=== PATIENT | male | born 1945 | race African-American/Black ===

== ENCOUNTER 2017-10-17 21:27 | Inpatient (IN) | payer MEDICARE, MEDICAID ==
[~2017-10-17] VITALS: Ht 167.6 cm; Wt 55.3 kg
[2017-10-17 23:14] LABS: CHLORIDE 106 mEq/L (98-107)
[2017-10-17 23:16] LABS: HEMATOCRIT. 45.2 % (42.0-52.0); HEMOGLOBIN. 14.7 g/dL (14.0-18.0); MEAN CORPUSCULAR HEMOGLOBIN 30.3 pg (28.0-32.0); MEAN CORPUSCULAR VOLUME 93.2 fL (80.0-94.0); MEAN PLATELET VOLUME 9.6 fl (7.4-10.4); PLATELET 240 x1000/uL (130-400); RED BLOOD CELL COUNT 4.84 mill/uL (4.7-6.1); RED CELL DISTRIBUTION WIDTH 17.3 % (11.6-14.6)
[2017-10-17 23:27] LABS: INR 1.2; PROTHROMBIN TIME 12.8 sec (9.4-11.6)
[2017-10-17 23:30] LABS: PLATELET ESTIMATE NORMAL
[2017-10-17] MEDS ORDERED: SODIUM CHLORIDE 0.9% 1,000 ML IV ONE (23:44)
[2017-10-18] VITALS (69 sets, daily range): BP systolic 67–156; BP diastolic 45–95
[2017-10-18] MEDS ORDERED: LEVOFLOXACIN 750MG PREMIX 150 ML IV ONE (00:30)
[2017-10-18] MEDS ORDERED: ZOLPIDEM TARTRATE 5MG TABLET PO PRN (03:15)
[2017-10-18] MEDS ORDERED: ONDANSETRON HCL 4MG/2ML VIAL IV PRN (03:30)
[2017-10-18] MEDS: IPRATROPIUM/ALBUTEROL 0.5-3(2.5)MG/3ML NEB HHN SCH ×5 (03:56→20:50)
[2017-10-18] MEDS: DEXTROSE 5% WATER 1,000 ML IV SCH ×2 (04:03→14:20)
[2017-10-18] MEDS ORDERED: FUROSEMIDE 40MG/4ML VIAL IVP SCH (08:15)
[2017-10-18] MEDS ORDERED: POTASSIUM CHLORIDE 20MEQ TABLET SR PO NR (08:21)
[2017-10-18] MEDS: OMEPRAZOLE 20MG CAPSULE EXTENDED RELEASE PO SCH (09:04)
[2017-10-18 09:42] LABS: HEMATOCRIT. 46.7 % (42.0-52.0); HEMOGLOBIN. 15.2 g/dL (14.0-18.0); MEAN CORPUSCULAR HEMOGLOBIN 30.7 pg (28.0-32.0); MEAN PLATELET VOLUME 10.3 fl (7.4-10.4); PLATELET 242 x1000/uL (130-400); RED BLOOD CELL COUNT 4.97 mill/uL (4.7-6.1); RED CELL DISTRIBUTION WIDTH 17.2 % (11.6-14.6)
[2017-10-18 09:50] LABS: CHLORIDE 104 mEq/L (98-107)
[2017-10-18 10:46] LABS: PLATELET ESTIMATE NORMAL
[2017-10-18 12:13] LABS: BG BASE EXCESS 10.7 mmol/L (-2.0-2.0); BG CARBOXYHEMOGLOBIN 0.6 % (0.5-1.5); BG DEOXYHEMOGLOBIN 2.4 % (0.0-5.0); BG HCO3 ACT 37.8 mmol/L (22.0-26.0); BG METHEMOGLOBIN 0.4 % (0.0-1.5); BG OXYGEN SATURATION 97.6 % (92.0-98.5); BG OXYHEMOGLOBIN 96.6 % (94.0-97.0); BG PCO2 60.1 mmHg (35.0-45.0); BG PH 7.417 (7.350-7.450); BG PO2 103.7 mmHg (75.0-100.0); BG SAMPLE SITE RIGHT RADIAL; BG TOTAL HEMOGLOBIN 15.1 g/dL (12.0-18.0); BG VENT MODE MASK - NRB
[2017-10-18] MEDS ORDERED: SUCCINYLCHOLINE CHLORIDE 200MG/10ML VIAL IV ONE (12:53)
[2017-10-18] MEDS ORDERED: ETOMIDATE 2MG/ML 10ML VIAL IV ONE (12:53)
[2017-10-18] MEDS: DEXT 5%/0.45% NACL 1000ML 1,000 ML IV SCH ×2 (14:31→18:26)
[2017-10-18] MEDS ORDERED: NOREPINEPHRINE 8 MG in DEXT 5% WATER 242 ML IV PRN (16:45)
[2017-10-18] MEDS ORDERED: NOREPINEPHRINE 8 MG in SODIUM CHLORIDE 0.9% 242 ML IV PRN (17:00)
[2017-10-18] MEDS ORDERED: SODIUM CHLORIDE 0.9% 500 ML IV ONE (17:00)
[2017-10-18 17:14] LABS: BG BASE EXCESS 5.6 mmol/L (-2.0-2.0); BG CARBOXYHEMOGLOBIN 0.2 % (0.5-1.5); BG DEOXYHEMOGLOBIN 0.8 % (0.0-5.0); BG FRACTION INSPIRED OXYGEN 99.9; BG HCO3 ACT 34.6 mmol/L (22.0-26.0); BG METHEMOGLOBIN 0.2 % (0.0-1.5); BG OXYGEN SATURATION 99.2 % (92.0-98.5); BG OXYHEMOGLOBIN 98.8 % (94.0-97.0); BG PCO2 71.4 mmHg (35.0-45.0); BG PH 7.303 (7.350-7.450); BG PO2 202.2 mmHg (75.0-100.0); BG SAMPLE SITE LEFT RADIAL; BG TOTAL HEMOGLOBIN 14.3 g/dL (12.0-18.0); BG VENT MODE AMBU BAG
[2017-10-18] MEDS ORDERED: PROPOFOL 10MG/ML 100ML 100 ML IV PRN (17:30)
[2017-10-18] MEDS: METRONIDAZOLE 500 MG PREMIX 100 ML IV SCH ×2 (19:55→23:30)
[2017-10-18 22:03] LABS: BG CARBOXYHEMOGLOBIN 0.1 % (0.5-1.5); BG DEOXYHEMOGLOBIN 6.3 % (0.0-5.0); BG FRACTION INSPIRED OXYGEN 80; BG HCO3 ACT 33.2 mmol/L (22.0-26.0); BG METHEMOGLOBIN 0.2 % (0.0-1.5); BG OXYGEN SATURATION 93.7 % (92.0-98.5); BG OXYHEMOGLOBIN 93.4 % (94.0-97.0); BG PCO2 43.1 mmHg (35.0-45.0); BG PH 7.504 (7.350-7.450); BG PO2 68.5 mmHg (75.0-100.0); BG SAMPLE SITE RIGHT RADIAL; BG TIDAL VOLUME(mL) 550 mL; BG TOTAL HEMOGLOBIN 14.1 g/dL (12.0-18.0); BG VENT MODE VENT - A/C; BG VENT RATE 18 set
[2017-10-18 23:19] LABS: CLARITY URINE CLOUDY (CLEAR); COLOR URINE YELLOW (YELLOW); KETONES URINE NEGATIVE (NEGATIVE); LEUKOCYTE ESTERASE URINE NEGATIVE (NEGATIVE); NITRITE URINE NEGATIVE (NEGATIVE); OCCULT BLOOD URINE 3+ (NEGATIVE); PROTEIN URINE 1+ (NEGATIVE); UROBILINOGEN URINE 0.2 E.U./dL (0.2-1.0)
[2017-10-19] VITALS (97 sets, daily range): BP systolic 68–127; BP diastolic 45–94
[2017-10-19] MEDS: IPRATROPIUM/ALBUTEROL 0.5-3(2.5)MG/3ML NEB HHN SCH ×6 (00:38→20:10)
[2017-10-19] MEDS: LEVOFLOXACIN 500MG PREMIX 100 ML IV SCH ×2 (03:21→23:58)
[2017-10-19 05:20] LABS: HEMATOCRIT. 40.9 % (42.0-52.0); HEMOGLOBIN. 13.4 g/dL (14.0-18.0); MEAN CORPUSCULAR HEMOGLOBIN 30.3 pg (28.0-32.0); MEAN CORPUSCULAR VOLUME 92.2 fL (80.0-94.0); PLATELET 187 x1000/uL (130-400); RED BLOOD CELL COUNT 4.43 mill/uL (4.7-6.1); RED CELL DISTRIBUTION WIDTH 16.9 % (11.6-14.6)
[2017-10-19 05:28] LABS: CHLORIDE 106 mEq/L (98-107)
[2017-10-19] MEDS: OMEPRAZOLE 20MG CAPSULE EXTENDED RELEASE PO SCH (06:24)
[2017-10-19] MEDS: METRONIDAZOLE 500 MG PREMIX 100 ML IV SCH ×3 (06:24→21:36)
[2017-10-19] MEDS: NOREPINEPHRINE 16 MG in SODIUM CHLORIDE 0.9% 484 ML IV PRN (06:27)
[2017-10-19] MEDS ORDERED: PROPOFOL 10MG/ML 100ML 100 ML IV PRN (07:41)
[2017-10-19] MEDS ORDERED: IPRATROPIUM/ALBUTEROL 0.5-3(2.5)MG/3ML NEB HHN PRN (08:00)
[2017-10-19 08:06] LABS: BG BASE EXCESS 9.9 mmol/L (-2.0-2.0); BG CARBOXYHEMOGLOBIN 0.3 % (0.5-1.5); BG DEOXYHEMOGLOBIN 0.4 % (0.0-5.0); BG FRACTION INSPIRED OXYGEN 90; BG HCO3 ACT 34.2 mmol/L (22.0-26.0); BG METHEMOGLOBIN 0.3 % (0.0-1.5); BG OXYGEN SATURATION 99.6 % (92.0-98.5); BG PCO2 44.2 mmHg (35.0-45.0); BG PH 7.506 (7.350-7.450); BG PO2 241.2 mmHg (75.0-100.0); BG SAMPLE SITE RIGHT RADIAL; BG TIDAL VOLUME(mL) 550 mL; BG TOTAL HEMOGLOBIN 13.9 g/dL (12.0-18.0); BG VENT MODE VENT - A/C; BG VENT RATE 16 set
[2017-10-19] MEDS ORDERED: POTASSIUM CHLORIDE 20MEQ/PACKET PO SCH (08:45)
[2017-10-19] MEDS ORDERED: POTASSIUM CHLORIDE INJ 40 MEQ in DEXT 5% WATER 250 ML IV NR ×2 (09:00→23:00)
[2017-10-19 09:35] LABS: PLATELET ESTIMATE NORMAL
[2017-10-19 10:27] LABS: BG BASE EXCESS 11.3 mmol/L (-2.0-2.0); BG CARBOXYHEMOGLOBIN 0.1 % (0.5-1.5); BG DEOXYHEMOGLOBIN 2.2 % (0.0-5.0); BG FRACTION INSPIRED OXYGEN 50; BG HCO3 ACT 35.3 mmol/L (22.0-26.0); BG METHEMOGLOBIN 0.1 % (0.0-1.5); BG OXYGEN SATURATION 97.8 % (92.0-98.5); BG OXYHEMOGLOBIN 97.6 % (94.0-97.0); BG PCO2 43.5 mmHg (35.0-45.0); BG PH 7.527 (7.350-7.450); BG PO2 102.9 mmHg (75.0-100.0); BG PRESSURE SUPPORT 12; BG SAMPLE SITE RIGHT BRACHIAL; BG TIDAL VOLUME(mL) 550 mL; BG TOTAL HEMOGLOBIN 13.2 g/dL (12.0-18.0); BG VENT MODE VENT - SIMV; BG VENT RATE 8 set
[2017-10-19] MEDS: PANTOPRAZOLE SODIUM 40 MG/VIAL IV SCH (11:42)
[2017-10-19] MEDS ORDERED: PAMIDRONATE DISODIUM 90 MG in SODIUM CHLORIDE 0.9% 1,000 ML IV NR (12:00)
[2017-10-19] MEDS: DEXT 5%/0.45% NACL 1000ML 1,000 ML IV SCH ×2 (14:15→23:58)
[2017-10-19 20:54] LABS: CHLORIDE 108 mEq/L (98-107)
[2017-10-19] MEDS ORDERED: DEXT 5% WATER + KCL 40MEQ/L 250 ML IV ONE (22:00)
[2017-10-20] VITALS (48 sets, daily range): BP systolic 76–117; BP diastolic 36–70
[2017-10-20] MEDS: IPRATROPIUM/ALBUTEROL 0.5-3(2.5)MG/3ML NEB HHN SCH ×7 (00:05→23:47)
[2017-10-20] MEDS: METRONIDAZOLE 500 MG PREMIX 100 ML IV SCH ×3 (05:47→21:08)
[2017-10-20 06:18] LABS: CHLORIDE 105 mEq/L (98-107)
[2017-10-20 06:22] LABS: HEMATOCRIT. 33.8 % (42.0-52.0); HEMOGLOBIN. 10.8 g/dL (14.0-18.0); MEAN CORPUSCULAR HEMOGLOBIN 29.6 pg (28.0-32.0); MEAN CORPUSCULAR VOLUME 92.9 fL (80.0-94.0); MEAN PLATELET VOLUME 10.4 fl (7.4-10.4); PLATELET 123 x1000/uL (130-400); RED BLOOD CELL COUNT 3.64 mill/uL (4.7-6.1); RED CELL DISTRIBUTION WIDTH 17.4 % (11.6-14.6)
[2017-10-20 06:29] LABS: PHOSPHORUS 1.1 mg/dL (2.5-4.9)
[2017-10-20 06:36] LABS: T4 FREE 1.03 ng/dL (0.76-1.46)
[2017-10-20 08:43] LABS: BG CARBOXYHEMOGLOBIN 0.3 % (0.5-1.5); BG FRACTION INSPIRED OXYGEN 50; BG HCO3 ACT 33.7 mmol/L (22.0-26.0); BG METHEMOGLOBIN 0.3 % (0.0-1.5); BG OXYHEMOGLOBIN 93.4 % (94.0-97.0); BG PCO2 41.7 mmHg (35.0-45.0); BG PH 7.525 (7.350-7.450); BG PO2 67.2 mmHg (75.0-100.0); BG PRESSURE SUPPORT 8; BG SAMPLE SITE RIGHT RADIAL; BG TIDAL VOLUME(mL) 550 mL; BG VENT MODE VENT - SIMV; BG VENT RATE 8 set
[2017-10-20] MEDS: PANTOPRAZOLE SODIUM 40 MG/VIAL IV SCH (09:43)
[2017-10-20] MEDS ORDERED: POTASSIUM CHLORIDE INJ 40 MEQ in DEXT 5% WATER 250 ML IV SCH (10:00)
[2017-10-20] MEDS ORDERED: PAMIDRONATE DISODIUM 90 MG in SODIUM CHLORIDE 0.9% 500 ML IV ONE (10:45)
[2017-10-20 11:21] LABS: PLATELET ESTIMATE SLIGHTLY DECREASED
[2017-10-20] MEDS ORDERED: LIDOCAINE HCL/PF 1% 2ML VIAL ONE (13:20)
[2017-10-20] MEDS: DEXT 5%/0.45% NACL KCL 40MEQ/L 1,000 ML IV SCH (13:54)
[2017-10-20] MEDS ORDERED: POTASSIUM PHOS,M-BASIC-D-BASIC 30 MMOL in DEXT 5% WATER 500 ML IV SCH (16:00)
[2017-10-20] MEDS: ACETAMINOPHEN 650MG/20.3ML UDC GT PRN (18:20)
[2017-10-20] MEDS: LEVOFLOXACIN 500MG PREMIX 100 ML IV SCH (23:55)
[2017-10-21] VITALS (47 sets, daily range): BP systolic 70–153; BP diastolic 36–86
[2017-10-21] MEDS: DEXT 5%/0.45% NACL KCL 40MEQ/L 1,000 ML IV SCH ×3 (01:03→22:02)
[2017-10-21] MEDS: IPRATROPIUM/ALBUTEROL 0.5-3(2.5)MG/3ML NEB HHN SCH ×5 (03:44→20:30)
[2017-10-21] MEDS: METRONIDAZOLE 500 MG PREMIX 100 ML IV SCH (05:29)
[2017-10-21 05:50] LABS: HEMATOCRIT. 31.9 % (42.0-52.0); HEMOGLOBIN. 10.8 g/dL (14.0-18.0); MEAN CORPUSCULAR VOLUME 91.4 fL (80.0-94.0); MEAN PLATELET VOLUME 10.6 fl (7.4-10.4); PLATELET 90 x1000/uL (130-400); RED BLOOD CELL COUNT 3.49 mill/uL (4.7-6.1); RED CELL DISTRIBUTION WIDTH 17.4 % (11.6-14.6)
[2017-10-21 06:05] LABS: CHLORIDE 104 mEq/L (98-107); PHOSPHORUS 1.1 mg/dL (2.5-4.9)
[2017-10-21 07:57] LABS: PLATELET ESTIMATE DECREASED
[2017-10-21] MEDS: PANTOPRAZOLE SODIUM 40 MG/VIAL IV SCH (08:37)
[2017-10-21] MEDS ORDERED: POTASSIUM PHOS,M-BASIC-D-BASIC 30 MMOL in DEXT 5% WATER 500 ML IV SCH (09:00)
[2017-10-21 09:06] LABS: A/G RATIO 0.6 (0.7-1.7); ALBUMIN 2.2 g/dL (2.9-4.4); ALPHA-1-GLOBULIN 0.5 g/dL (0.0-0.4); ALPHA-2-GLOBULIN 0.9 g/dL (0.4-1.0); BETA GLOBULIN 1.2 g/dL (0.7-1.3); GAMMA GLOBULINS 1.1 g/dL (0.4-1.8); GLOBULIN TOTAL 3.7 g/dL (2.2-3.9); M-SPIKE Not Observed g/dL (Not Observed); TOTAL PROTEIN SERUM 5.9 g/dL (6.0-8.5)
[2017-10-21 09:48] LABS: INR 1.5; PARTIAL THROMBOPLASTIN TIME 33.6 sec (23.4-31.0); PROTHROMBIN TIME 15.9 sec (9.4-11.6)
[2017-10-21 14:23] LABS: ACTH PLASMA 9 pg/mL (7.2-63.3)
[2017-10-21] MEDS ORDERED: MORPHINE SULFATE 4 MG/ML CPJ (NOT FOR IM USE) IV NR ×2 (22:30→22:45)
[2017-10-21] MEDS ORDERED: MIDAZOLAM HCL 2 MG/2 ML VIAL IV NR ×2 (22:30→22:55)
[2017-10-21] MEDS ORDERED: MIDAZOLAM HCL 2 MG/2 ML VIAL IV PRN (22:57)
[2017-10-21] MEDS: NOREPINEPHRINE 16 MG in SODIUM CHLORIDE 0.9% 484 ML IV PRN (23:51)
[2017-10-22] VITALS (91 sets, daily range): BP systolic 63–151; BP diastolic 27–104
[2017-10-22] MEDS: IPRATROPIUM/ALBUTEROL 0.5-3(2.5)MG/3ML NEB HHN SCH ×6 (00:15→20:42)
[2017-10-22] MEDS: LEVOFLOXACIN 500MG PREMIX 100 ML IV SCH (01:19)
[2017-10-22 05:39] LABS: HEMATOCRIT. 34.7 % (42.0-52.0); HEMOGLOBIN. 11.6 g/dL (14.0-18.0); MEAN CORPUSCULAR HEMOGLOBIN 30.2 pg (28.0-32.0); MEAN CORPUSCULAR VOLUME 90.2 fL (80.0-94.0); PLATELET 129 x1000/uL (130-400); RED BLOOD CELL COUNT 3.85 mill/uL (4.7-6.1); RED CELL DISTRIBUTION WIDTH 17.4 % (11.6-14.6)
[2017-10-22 06:13] LABS: CHLORIDE 101 mEq/L (98-107)
[2017-10-22 06:24] LABS: PHOSPHORUS 1.6 mg/dL (2.5-4.9)
[2017-10-22 07:52] LABS: PLATELET ESTIMATE SLIGHTLY DECREASED
[2017-10-22 08:17] LABS: ANGIOTENSION CONVERTING ENZYME 20 U/L (14-82)
[2017-10-22 09:04] LABS: BG BASE EXCESS 4.7 mmol/L (-2.0-2.0); BG CARBOXYHEMOGLOBIN 0.3 % (0.5-1.5); BG DEOXYHEMOGLOBIN 2.6 % (0.0-5.0); BG FRACTION INSPIRED OXYGEN 60; BG HCO3 ACT 29.1 mmol/L (22.0-26.0); BG METHEMOGLOBIN 0.4 % (0.0-1.5); BG OXYGEN SATURATION 97.4 % (92.0-98.5); BG OXYHEMOGLOBIN 96.7 % (94.0-97.0); BG PCO2 42.9 mmHg (35.0-45.0); BG PO2 96.9 mmHg (75.0-100.0); BG SAMPLE SITE RIGHT RADIAL; BG TIDAL VOLUME(mL) 550 mL; BG TOTAL HEMOGLOBIN 10.7 g/dL (12.0-18.0); BG VENT MODE VENT - A/C; BG VENT RATE 10 set
[2017-10-22] MEDS: PANTOPRAZOLE SODIUM 40 MG/VIAL IV SCH (09:11)
[2017-10-22] MEDS ORDERED: POTASSIUM PHOS,M-BASIC-D-BASIC 20 MMOL in DEXT 5% WATER 243.3333 ML IV SCH (10:30)
[2017-10-22 12:46] LABS: BG BASE EXCESS 2.7 mmol/L (-2.0-2.0); BG CARBOXYHEMOGLOBIN 0.3 % (0.5-1.5); BG DEOXYHEMOGLOBIN 2.3 % (0.0-5.0); BG FRACTION INSPIRED OXYGEN 55; BG HCO3 ACT 26.9 mmol/L (22.0-26.0); BG METHEMOGLOBIN 0.2 % (0.0-1.5); BG OXYGEN SATURATION 97.7 % (92.0-98.5); BG OXYHEMOGLOBIN 97.2 % (94.0-97.0); BG PCO2 39.9 mmHg (35.0-45.0); BG PH 7.447 (7.350-7.450); BG PO2 104.3 mmHg (75.0-100.0); BG PRESSURE SUPPORT 8; BG SAMPLE SITE RIGHT RADIAL; BG TOTAL HEMOGLOBIN 11.8 g/dL (12.0-18.0); BG VENT MODE VENT - CPAP
[2017-10-22] MEDS: MORPHINE SULFATE 4 MG/ML CPJ (NOT FOR IM USE) IV PRN (15:23)
[2017-10-22] MEDS ORDERED: ZOLPIDEM TARTRATE 5MG TABLET PO PRN (19:00)
[2017-10-22] MEDS: DEXT 5%/0.45% NACL KCL 40MEQ/L 1,000 ML IV SCH ×2 (21:00→21:19)
[2017-10-23] VITALS (78 sets, daily range): BP systolic 74–114; BP diastolic 42–90
[2017-10-23] MEDS: IPRATROPIUM/ALBUTEROL 0.5-3(2.5)MG/3ML NEB HHN SCH ×6 (00:44→20:33)
[2017-10-23] MEDS: LEVOFLOXACIN 500MG PREMIX 100 ML IV SCH (01:20)
[2017-10-23] MEDS: NOREPINEPHRINE 16 MG in SODIUM CHLORIDE 0.9% 484 ML IV PRN (02:57)
[2017-10-23 05:32] LABS: HEMATOCRIT. 31.2 % (42.0-52.0); HEMOGLOBIN. 10.6 g/dL (14.0-18.0); MEAN CORPUSCULAR HEMOGLOBIN 31.2 pg (28.0-32.0); MEAN CORPUSCULAR VOLUME 91.3 fL (80.0-94.0); MEAN PLATELET VOLUME 9.7 fl (7.4-10.4); PLATELET 99 x1000/uL (130-400); RED BLOOD CELL COUNT 3.42 mill/uL (4.7-6.1); RED CELL DISTRIBUTION WIDTH 17.2 % (11.6-14.6)
[2017-10-23] MEDS: DEXT 5%/0.45% NACL KCL 40MEQ/L 1,000 ML IV SCH ×3 (05:34→22:56)
[2017-10-23 06:13] LABS: CHLORIDE 102 mEq/L (98-107)
[2017-10-23] MEDS: LEVOTHYROXINE SODIUM 50MCG TABLET PO SCH (06:28)
[2017-10-23 06:35] LABS: PHOSPHORUS 1.5 mg/dL (2.5-4.9)
[2017-10-23] MEDS: PANTOPRAZOLE SODIUM 40 MG/VIAL IV SCH (08:29)
[2017-10-23] MEDS ORDERED: SODIUM CHLORIDE 0.9% 500 ML IV ONE (09:30)
[2017-10-23] MEDS ORDERED: POTASSIUM PHOS,M-BASIC-D-BASIC 20 MMOL in DEXT 5% WATER 243.3333 ML IV SCH (10:00)
[2017-10-23] MEDS ORDERED: MAGNESIUM 2 G PREMIX 50 ML IV SCH (10:00)
[2017-10-23] MEDS: PIPERACILLIN/TAZ 3.375G PREMIX 50 ML IV SCH ×2 (10:27→17:35)
[2017-10-23] MEDS ORDERED: SODIUM CHLORIDE 0.9% 500 ML IV SCH (11:30)
[2017-10-23] MEDS: ACETYLCYSTEINE 100MG/ML 10% VIAL 4ML INH SCH (16:39)
[2017-10-23] MEDS: MORPHINE SULFATE 4 MG/ML CPJ (NOT FOR IM USE) IV PRN (18:46)
[2017-10-23 21:51] LABS: PLATELET ESTIMATE DECREASED
[2017-10-24] VITALS (97 sets, daily range): BP systolic 76–128; BP diastolic 36–80
[2017-10-24] MEDS: ACETYLCYSTEINE 100MG/ML 10% VIAL 4ML INH SCH ×4 (00:01→23:43)
[2017-10-24] MEDS: IPRATROPIUM/ALBUTEROL 0.5-3(2.5)MG/3ML NEB HHN SCH ×7 (00:02→23:43)
[2017-10-24] MEDS: PIPERACILLIN/TAZ 3.375G PREMIX 50 ML IV SCH ×3 (02:23→17:57)
[2017-10-24 05:37] LABS: HEMATOCRIT. 31.6 % (42.0-52.0); HEMOGLOBIN. 10.6 g/dL (14.0-18.0); MEAN CORPUSCULAR HEMOGLOBIN 30.3 pg (28.0-32.0); MEAN CORPUSCULAR VOLUME 90.8 fL (80.0-94.0); MEAN PLATELET VOLUME 9.2 fl (7.4-10.4); PLATELET 110 x1000/uL (130-400); RED BLOOD CELL COUNT 3.48 mill/uL (4.7-6.1); RED CELL DISTRIBUTION WIDTH 17.3 % (11.6-14.6)
[2017-10-24 05:50] LABS: CHLORIDE 99 mEq/L (98-107)
[2017-10-24] MEDS: LEVOTHYROXINE SODIUM 50MCG TABLET PO SCH (07:19)
[2017-10-24] MEDS: PANTOPRAZOLE SODIUM 40 MG/VIAL IV SCH (08:15)
[2017-10-24] MEDS: DEXT 5%/0.45% NACL KCL 40MEQ/L 1,000 ML IV SCH ×3 (08:15→21:00)
[2017-10-24] MEDS: NOREPINEPHRINE 16 MG in SODIUM CHLORIDE 0.9% 484 ML IV PRN (10:31)
[2017-10-24 12:37] LABS: PLATELET ESTIMATE SLIGHTLY DECREASED
[2017-10-24 15:49] LABS: PHOSPHORUS 1.5 mg/dL (2.5-4.9)
[2017-10-24] MEDS ORDERED: POTASSIUM PHOS,M-BASIC-D-BASIC 20 MMOL in DEXT 5% WATER 243.3333 ML IV ONE (19:15)
[2017-10-24] MEDS ORDERED: DEXTROSE IV NR (21:00)
[2017-10-24] MEDS ORDERED: SODIUM PHOS M BASIC D BASIC IV NR (21:00)
[2017-10-24] MEDS ORDERED: WATER IV NR (21:00)
[2017-10-25] VITALS (92 sets, daily range): BP systolic 79–195; BP diastolic 42–172
[2017-10-25] MEDS: PIPERACILLIN/TAZ 3.375G PREMIX 50 ML IV SCH ×3 (02:00→17:02)
[2017-10-25] MEDS: IPRATROPIUM/ALBUTEROL 0.5-3(2.5)MG/3ML NEB HHN SCH ×5 (03:40→20:33)
[2017-10-25] MEDS: DEXT 5%/0.45% NACL KCL 40MEQ/L 1,000 ML IV SCH ×3 (05:06→23:03)
[2017-10-25 05:18] LABS: BASOPHILS % 0.2 % (0.0-2.0); EOSINOPHILS % 0.4 % (0.0-5.0); HEMATOCRIT. 31.1 % (42.0-52.0); HEMOGLOBIN. 10.4 g/dL (14.0-18.0); LYMPHOCYTES % 8.6 % (20.0-50.0); MEAN CORPUSCULAR HEMOGLOBIN 30.2 pg (28.0-32.0); MEAN CORPUSCULAR VOLUME 90.4 fL (80.0-94.0); MEAN PLATELET VOLUME 9.4 fl (7.4-10.4); MONOCYTES % 12.6 % (2.0-8.0); NEUTROPHILS % 78.2 % (40.0-76.0); PLATELET 150 x1000/uL (130-400); RED BLOOD CELL COUNT 3.44 mill/uL (4.7-6.1)
[2017-10-25 05:30] LABS: CHLORIDE 99 mEq/L (98-107)
[2017-10-25] MEDS: LEVOTHYROXINE SODIUM 50MCG TABLET PO SCH (06:51)
[2017-10-25] MEDS: ACETYLCYSTEINE 100MG/ML 10% VIAL 4ML INH SCH ×2 (08:05→15:19)
[2017-10-25] MEDS ORDERED: LIDOCAINE HCL/PF 1% 10 MG/ML 5ML VIAL ONE (10:07)
[2017-10-25] MEDS: PANTOPRAZOLE SODIUM 40 MG/VIAL IV SCH (10:27)
[2017-10-25 17:27] LABS: PHOSPHORUS 2.8 mg/dL (2.5-4.9)
[2017-10-26] VITALS (97 sets, daily range): BP systolic 74–139; BP diastolic 32–86
[2017-10-26] MEDS: ACETYLCYSTEINE 100MG/ML 10% VIAL 4ML INH SCH ×4 (00:30→16:08)
[2017-10-26] MEDS: IPRATROPIUM/ALBUTEROL 0.5-3(2.5)MG/3ML NEB HHN SCH ×6 (00:49→21:13)
[2017-10-26] MEDS: PIPERACILLIN/TAZ 3.375G PREMIX 50 ML IV SCH ×3 (05:24→18:06)
[2017-10-26] MEDS: DEXT 5%/0.45% NACL KCL 40MEQ/L 1,000 ML IV SCH ×3 (05:25→18:06)
[2017-10-26] MEDS: LEVOTHYROXINE SODIUM 50MCG TABLET PO SCH (06:46)
[2017-10-26] MEDS: PANTOPRAZOLE SODIUM 40 MG/VIAL IV SCH (09:15)
[2017-10-26] MEDS ORDERED: MIDODRINE HCL 5MG TABLET PO SCH (13:00)
[2017-10-26] MEDS: MIDODRINE HCL 5MG TABLET PO SCH ×2 (13:40→18:06)
[2017-10-26] MEDS: MORPHINE SULFATE 4 MG/ML CPJ (NOT FOR IM USE) IV PRN (19:44)
[2017-10-27] VITALS (90 sets, daily range): BP systolic 69–133; BP diastolic 32–97
[2017-10-27] MEDS: IPRATROPIUM/ALBUTEROL 0.5-3(2.5)MG/3ML NEB HHN SCH ×6 (00:51→20:48)
[2017-10-27] MEDS: PIPERACILLIN/TAZ 3.375G PREMIX 50 ML IV SCH (02:28)
[2017-10-27] MEDS: LEVOTHYROXINE SODIUM 50MCG TABLET PO SCH (05:12)
[2017-10-27] MEDS: DEXT 5%/0.45% NACL KCL 40MEQ/L 1,000 ML IV SCH ×3 (05:12→20:59)
[2017-10-27 05:39] LABS: HEMATOCRIT. 30.6 % (42.0-52.0); HEMOGLOBIN. 10.3 g/dL (14.0-18.0); MEAN CORPUSCULAR HEMOGLOBIN 30.6 pg (28.0-32.0); MEAN CORPUSCULAR VOLUME 90.4 fL (80.0-94.0); MEAN PLATELET VOLUME 9.2 fl (7.4-10.4); PLATELET 208 x1000/uL (130-400); RED BLOOD CELL COUNT 3.38 mill/uL (4.7-6.1); RED CELL DISTRIBUTION WIDTH 16.6 % (11.6-14.6)
[2017-10-27 06:16] LABS: CHLORIDE 98 mEq/L (98-107)
[2017-10-27 07:48] LABS: BG BASE EXCESS 4.8 mmol/L (-2.0-2.0); BG CARBOXYHEMOGLOBIN 0.3 % (0.5-1.5); BG DEOXYHEMOGLOBIN 4.7 % (0.0-5.0); BG FRACTION INSPIRED OXYGEN 28; BG HCO3 ACT 29.5 mmol/L (22.0-26.0); BG METHEMOGLOBIN 0.3 % (0.0-1.5); BG OXYGEN SATURATION 95.3 % (92.0-98.5); BG OXYHEMOGLOBIN 94.7 % (94.0-97.0); BG PCO2 44.4 mmHg (35.0-45.0); BG PO2 76.7 mmHg (75.0-100.0); BG SAMPLE SITE RIGHT RADIAL; BG TOTAL HEMOGLOBIN 10.1 g/dL (12.0-18.0); BG VENT MODE MASK - TRACH
[2017-10-27] MEDS: ACETYLCYSTEINE 100MG/ML 10% VIAL 4ML INH SCH ×2 (07:49→16:34)
[2017-10-27] MEDS: PANTOPRAZOLE SODIUM 40 MG/VIAL IV SCH (08:39)
[2017-10-27] MEDS: MIDODRINE HCL 5MG TABLET PO SCH ×3 (08:40→17:07)
[2017-10-27 10:48] LABS: PLATELET ESTIMATE NORMAL
[2017-10-28] VITALS (31 sets, daily range): BP systolic 83–131; BP diastolic 44–73
[2017-10-28] MEDS: ACETYLCYSTEINE 100MG/ML 10% VIAL 4ML INH SCH ×2 (01:33→09:12)
[2017-10-28] MEDS: IPRATROPIUM/ALBUTEROL 0.5-3(2.5)MG/3ML NEB HHN SCH ×6 (01:34→20:45)
[2017-10-28] MEDS: LEVOTHYROXINE SODIUM 50MCG TABLET PO SCH (05:31)
[2017-10-28] MEDS: DEXT 5%/0.45% NACL KCL 40MEQ/L 1,000 ML IV SCH ×3 (05:31→21:10)
[2017-10-28 05:53] LABS: CHLORIDE 98 mEq/L (98-107)
[2017-10-28 06:29] LABS: HEMATOCRIT. 30.9 % (42.0-52.0); HEMOGLOBIN. 10.2 g/dL (14.0-18.0); MEAN CORPUSCULAR HEMOGLOBIN 29.8 pg (28.0-32.0); MEAN CORPUSCULAR VOLUME 90.5 fL (80.0-94.0); MEAN PLATELET VOLUME 9.4 fl (7.4-10.4); PLATELET 256 x1000/uL (130-400); RED BLOOD CELL COUNT 3.41 mill/uL (4.7-6.1); RED CELL DISTRIBUTION WIDTH 16.3 % (11.6-14.6)
[2017-10-28] MEDS: MIDODRINE HCL 5MG TABLET PO SCH ×3 (09:21→17:22)
[2017-10-28] MEDS: PANTOPRAZOLE SODIUM 40 MG/VIAL IV SCH (09:21)
[2017-10-28 15:40] LABS: PLATELET ESTIMATE NORMAL
[2017-10-28] MEDS: ACETAMINOPHEN 650MG/20.3ML UDC GT PRN (21:10)
[2017-10-29] VITALS (19 sets, daily range): BP systolic 85–142; BP diastolic 52–96
[2017-10-29] MEDS: IPRATROPIUM/ALBUTEROL 0.5-3(2.5)MG/3ML NEB HHN SCH ×6 (00:15→20:12)
[2017-10-29] MEDS: ACETYLCYSTEINE 100MG/ML 10% VIAL 4ML INH SCH (00:15)
[2017-10-29] MEDS: DEXT 5%/0.45% NACL KCL 40MEQ/L 1,000 ML IV SCH ×3 (06:02→22:17)
[2017-10-29] MEDS: ACETAMINOPHEN 650MG/20.3ML UDC GT PRN (06:28)
[2017-10-29] MEDS: PANTOPRAZOLE SODIUM 40 MG/VIAL IV SCH (08:24)
[2017-10-29] MEDS: LEVOTHYROXINE SODIUM 50MCG TABLET PO SCH (08:24)
[2017-10-29] MEDS: MIDODRINE HCL 5MG TABLET PO SCH ×3 (08:25→17:40)
[2017-10-29] MEDS: HYDROCODONE/ACETAMINOPHEN 5/325MG TABLET GT PRN ×2 (12:57→20:37)
[2017-10-29 14:33] LABS: CLARITY URINE CLEAR (CLEAR); COLOR URINE YELLOW (YELLOW); KETONES URINE NEGATIVE (NEGATIVE); LEUKOCYTE ESTERASE URINE NEGATIVE (NEGATIVE); NITRITE URINE NEGATIVE (NEGATIVE); OCCULT BLOOD URINE NEGATIVE (NEGATIVE); PROTEIN URINE NEGATIVE (NEGATIVE); SPECIFIC GRAVITY URINE 1.009 (1.005-1.030); UROBILINOGEN URINE 0.2 E.U./dL (0.2-1.0)
[2017-10-29] MEDS ORDERED: MORPHINE SULFATE 4 MG/ML CPJ (NOT FOR IM USE) IV PRN (16:00)
[2017-10-30] VITALS (11 sets, daily range): BP systolic 106–153; BP diastolic 70–87
[2017-10-30] MEDS: IPRATROPIUM/ALBUTEROL 0.5-3(2.5)MG/3ML NEB HHN SCH ×4 (00:42→12:09)
[2017-10-30] MEDS: DEXT 5%/0.45% NACL KCL 40MEQ/L 1,000 ML IV SCH ×2 (05:33→12:37)
[2017-10-30] MEDS ORDERED: RACEPINEPHRINE 2.25% 0.5ML NEB VIAL HHN NR (09:30)
[2017-10-30] MEDS ORDERED: FINASTERIDE 5MG TABLET PO SCH (09:30)
[2017-10-30] MEDS: MIDODRINE HCL 5MG TABLET PO SCH ×2 (09:42→13:00)
[2017-10-30] MEDS: PANTOPRAZOLE SODIUM 40 MG/VIAL IV SCH (09:42)
[2017-10-30] MEDS: LEVOTHYROXINE SODIUM 50MCG TABLET PO SCH (09:42)
[2017-10-30 10:00] LABS: HEMATOCRIT 30.6 % (42.0-52.0); HEMOGLOBIN 10.1 g/dL (14.0-18.0)
[2017-10-30] MEDS ORDERED: LACTOBACILLUS GG CAPSULE PO SCH (11:30)
== END 2017-10-30 15:30 | disposition home or self-care (01) | DRG 208 ==
LOC: ER 21:49 → 5EST 23:47 → EDBEDREQ 23:56 → MICUSO 10-18 17:15 → 5EST 10-28 10:50
PROVIDERS: ADMIT Internal Medicine; ATTEND Internal Medicine
PROC: 0BH17EZ Insertion of Endotracheal Airway into Trachea, Via Natural or Artificial Opening (ICD-10-PCS; principal; 2017-10-18)
PROC: 5A1945Z Respiratory Ventilation, 24-96 Consecutive Hours (ICD-10-PCS; 2017-10-18)
PROC: 0B21XFZ Change Tracheostomy Device in Trachea, External Approach (ICD-10-PCS; 2017-10-21)
PROC: 05H533Z Insertion of Infusion Device into Right Subclavian Vein, Percutaneous Approach (ICD-10-PCS; 2017-10-25)
PROC: B546ZZA Ultrasonography of Right Subclavian Vein, Guidance (ICD-10-PCS; 2017-10-25)
DX: J95.03 Malfunction of tracheostomy stoma (principal); J96.20 Acute and chronic respiratory failure, unspecified whether with hypoxia or hypercapnia; E43 Unspecified severe protein-calorie malnutrition; J18.9 Pneumonia, unspecified organism; R09.2 Respiratory arrest; C78.00 Secondary malignant neoplasm of unspecified lung; D69.6 Thrombocytopenia, unspecified; E87.0 Hyperosmolality and hypernatremia; I95.9 Hypotension, unspecified; E83.39 Other disorders of phosphorus metabolism; Z68.1 Body mass index [BMI] 19.9 or less, adult; C14.0 Malignant neoplasm of pharynx, unspecified; E83.52 Hypercalcemia; E87.6 Hypokalemia; I10 Essential (primary) hypertension; R73.9 Hyperglycemia, unspecified; E86.0 Dehydration; E83.42 Hypomagnesemia; D64.9 Anemia, unspecified; Z87.891 Personal history of nicotine dependence
CPT/HCPCS: 31500; 36415; 36569; 36600; 71045; 76937; 80048; 80053; 81003; 82024; 82164; 82330; 82375; 82533; 82805; 82962; 83036; 83735; 83880; 83970; 84100; 84155; 84165; 84439; 84443; 84478; 85007; 85014; 85018; 85025; 85027; 85610; 85730; 86376; 86850; 86900; 87040; 87070; 87086; 93005; 93970; 94002; 94003; 94640; 96365; 97163; 97530; 99285; C1725; C9113; J0330; J1940; J1956; J2250; J2270; J2430; J2543; J3475; J3480; J3490; J7030; J7040; J7050; J7060; J7070; J7608; J7620; A4315